=== PATIENT | female | born 1995 | race Caucasian/White ===

== ENCOUNTER 2017-02-04 20:30 | Emergency (ER) | payer OTHER ==
[~2017-02-04] VITALS: Ht 165.1 cm; Wt 103.0 kg
[2017-02-04 20:31] VITALS: BP 119/77
== END 2017-02-04 22:04 | disposition home or self-care (01) ==
LOC: ED 21:52
DX: M79.671 Pain in right foot (principal); J45.909 Unspecified asthma, uncomplicated
CPT/HCPCS: 99284